=== PATIENT | female | born 1955 | race Caucasian/White ===

== ENCOUNTER → 2020-01-21 | Outpatient (CLI) | payer OTHER | LOC: RAD 09:27 | DX: M47.815 Spondylosis without myelopathy or radiculopathy, thoracolumbar region (principal); M41.84 Other forms of scoliosis, thoracic region ==

== ENCOUNTER → 2020-02-13 | Outpatient (CLI) | payer OTHER ==
[2020-02-13 08:28] LABS: HEMATOCRIT 37.4 % (37.0-47.0); HEMOGLOBIN 12.2 gm/dL (12.0-15.0); MCH 29.9 pg (26.0-34.0); MCHC 32.7 g/dL (28.0-37.0); MCV 91.7 fL (80.0-100.0); RBC 4.08 mil/uL (4.20-5.00); RDW 13.1 % (10.5-14.5); WBC 4.8 thou/uL (4.0-11.0)
[2020-02-13 08:43] LABS: APTT 28.7 Seconds (24.5-32.8); PROTIME 10.2 Seconds (9.3-11.4)
[2020-02-13 08:48] LABS: CREATININE 0.9 mg/dL (0.6-1.0); POTASSIUM 4.3 mmol/L (3.5-5.1)
== END | disposition home or self-care (01) ==
LOC: RAD 07:06
PROVIDERS: Radiology Diagnostic Radiology
DX: M54.5 Low back pain (principal); M54.2 Cervicalgia; M51.36 Other intervertebral disc degeneration, lumbar region; M48.02 Spinal stenosis, cervical region; M54.14 Radiculopathy, thoracic region; M41.86 Other forms of scoliosis, lumbar region; M41.84 Other forms of scoliosis, thoracic region; Z98.890 Other specified postprocedural states; Z79.899 Other long term (current) drug therapy